=== PATIENT | male | born 1985 | race Two or more races ===

== ENCOUNTER 2023-02-01 22:27 | Emergency (ER) | payer SELFPAY ==
[~2023-02-01] VITALS: Ht 170.2 cm; Wt 73.0 kg
[2023-02-01] MEDS ORDERED: AmLODIPine BESYLATE 10 MG TABLET PO ONE (23:00)
[2023-02-01] MEDS ORDERED: LABETALOL HCL 5 MG/ML 20 ML VIAL IVP ONE (23:00)
[2023-02-01 23:05] LABS: BASOPHILS % (AUTO) 0.4 % (0.0-2.0); EOSINOPHILS % (AUTO) 2.5 % (1.0-6.0); HEMATOCRIT 44.4 % (41-53); HEMOGLOBIN 14.9 g/dL (13.5-17.5); LYMPHOCYTES # (AUTO) 2.3 K/uL (1.0-4.8); LYMPHOCYTES % (AUTO) 34.3 % (22.0-44.0); MEAN CORPUSCULAR HEMOGLOBIN 30.8 pg (26.0-34.0); MEAN CORPUSCULAR HGB CONC 33.6 G/dL (31.0-37.0); MEAN CORPUSCULAR VOLUME 92 fL (80-100); MONOCYTES # (AUTO) 0.5 K/uL (0.1-1.0); MONOCYTES % (AUTO) 7.9 % (2.0-9.0); NEUTROPHILS # (AUTO) 3.7 K/uL (1.8-7.7); NEUTROPHILS % (AUTO) 54.9 % (40.0-70.0); PLATELET COUNT (AUTO) 287 K/uL (150-450); RED BLOOD CELL COUNT(AUTO) 4.85 MIL/uL (4.50-5.90); RED CELL DISTRIBUTION WIDTH 12.7 % (11.5-14.5)
[2023-02-01 23:16] LABS: ANION GAP 8 mmol/L (8-16); CALCIUM, TOTAL 9.4 mg/dL (8.8-10.5); CARBON DIOXIDE 26 mmol/L (22-29); CHLORIDE 101 mmol/L (98-107); CREATININE 1.04 mg/dL (0.60-1.30); GLOMERULAR FILTR. RATE CALC > 60 mL/min (>60); GLUCOSE,RANDOM 119 mg/dL (70-110); POTASSIUM 3.6 mmol/L (3.5-5.1); SODIUM SERUM 135 mmol/L (136-145)
[2023-02-01 23:22] LABS: ALANINE AMINOTRANSFERASE 76 U/L (12-78); ALBUMIN 4.4 g/dL (3.4-5.0); ALKALINE PHOSPHATASE 86 U/L (46-116); ASPARTATE AMINOTRANSFERASE 29 U/L (15-37); BILIRUBIN,TOTAL 0.6 mg/dL (0.1-1.0); TOTAL PROTEIN, SERUM 7.6 g/dL (6.4-8.2)
[2023-02-02] MEDS ORDERED: AMLO-258 PO (00:18)
[2023-02-02 00:35] VITALS: BP 142/89; PULSE 68; RESP 16; TEMP 98.4
== END 2023-02-02 00:47 | disposition home or self-care (01) ==
LOC: EDBD → EMS 22:29
DX: I10 Essential (primary) hypertension (principal); Z79.899 Other long term (current) drug therapy
CPT/HCPCS: 99285; 96374; 71045; 80053; 84484; 85025; 36415; 93005; J3490

== ENCOUNTER 2023-02-05 13:22 | Emergency (ER) | payer MEDICAID ==
[~2023-02-05] VITALS: Ht 167.6 cm; Wt 74.0 kg
[~2023-02-05 13:22] MED LIST: AMLO-258 PO
[2023-02-05 13:23] VITALS: TEMP 98.3
[2023-02-05] MEDS ORDERED: HYDR25TA2 PO ×2 (13:26→16:04)
[2023-02-05] MEDS ORDERED: HYDROCHLOROTHIAZIDE 25 MG TABLET PO ONE (14:15)
[2023-02-05 18:23] VITALS: BP 145/82; PULSE 89; RESP 20
== END 2023-02-05 18:24 | disposition home or self-care (01) ==
LOC: EMS 13:22 → EDBD 13:22 → EMS 18:24
DX: I10 Essential (primary) hypertension (principal)
CPT/HCPCS: 99283